=== PATIENT | female | born 1950 | race African-American/Black ===

== ENCOUNTER 2016-10-08 05:14 | Emergency (ER) | payer MEDICARE, OTHER ==
[~2016-10-08] VITALS: Ht 157.5 cm; Wt 82.0 kg
[2016-10-08] MEDS ORDERED: HYDROCODONE/ACETAMINOPHEN 5/325MG TABLET PO ONE (07:15)
[2016-10-08 07:38] VITALS: BP 172/66
== END 2016-10-08 08:24 | disposition home or self-care (01) ==
LOC: ER 05:14
DX: S00.03XA Contusion of scalp, initial encounter (principal); W18.39XA Other fall on same level, initial encounter; Y93.89 Activity, other specified; Y92.89 Other specified places as the place of occurrence of the external cause; M54.5 Low back pain; E11.9 Type 2 diabetes mellitus without complications; E05.90 Thyrotoxicosis, unspecified without thyrotoxic crisis or storm; I12.0 Hypertensive chronic kidney disease with stage 5 chronic kidney disease or end stage renal disease; N18.6 End stage renal disease; Z99.2 Dependence on renal dialysis
CPT/HCPCS: 99283

== ENCOUNTER 2018-08-01 15:39 | Inpatient (IN) | payer MEDICARE, MEDICAID ==
[~2018-08-01] VITALS: Ht 160 cm; Wt 70.3 kg
[2018-08-01 16:25] LABS: PROTHROMBIN TIME 10.5 sec (9.6-11.0)
[2018-08-01 16:26] LABS: CHLORIDE 97 mEq/L (98-107)
[2018-08-01 16:30] LABS: EOSINOPHILS % 3.3 % (0.0-5.0); HEMATOCRIT. 44.9 % (36.0-48.0); HEMOGLOBIN. 14.6 g/dL (12.0-16.0); LYMPHOCYTES % 20.4 % (20.0-50.0); MEAN CORPUSCULAR HEMOGLOBIN 31.8 pg (28.0-32.0); MEAN CORPUSCULAR VOLUME 97.5 fL (81.0-99.0); MEAN PLATELET VOLUME 9.3 fl (7.4-10.4); MONOCYTES % 7.1 % (2.0-8.0); NEUTROPHILS % 68.2 % (40.0-76.0); PLATELET 71 x1000/uL (130-400); RED CELL DISTRIBUTION WIDTH 16.1 % (11.6-14.6)
[2018-08-01 16:31] LABS: ETHANOL BLOOD < 10 mg/dL
[2018-08-01 16:34] LABS: LDL CHOLESTEROL 93 mg/dL (5-100)
[2018-08-01] MEDS ORDERED: IPRATROPIUM/ALBUTEROL 0.5-3(2.5)MG/3ML NEB INH PRN (16:45)
[2018-08-01] MEDS ORDERED: MAGNESIUM/ALUMINUM HYDROXIDE/SIMETHICONE 30ML UDC PO PRN (16:45)
[2018-08-01] MEDS ORDERED: ACETAMINOPHEN 650MG/20.3ML UDC GT PRN (16:45)
[2018-08-01] MEDS ORDERED: DIPHENHYDRAMINE 50MG/ML VIAL IV PRN (16:45)
[2018-08-01] MEDS ORDERED: DOCUSATE SODIUM 100MG CAPSULE PO PRN (16:45)
[2018-08-01] MEDS ORDERED: GUAIFENESIN 200MG/10ML SUGAR FREE UDC PO PRN (16:45)
[2018-08-01] MEDS ORDERED: CLONIDINE 0.1MG TABLET PO PRN (16:45)
[2018-08-01] MEDS ORDERED: NA PHOS,M-B/NA PHOS,DI-BA ENEMA 118ML PR PRN (16:45)
[2018-08-01] MEDS ORDERED: ONDANSETRON HCL 4MG/2ML INJ IV PRN (16:45)
[2018-08-01] MEDS ORDERED: ACETAMINOPHEN 650MG SUPP PR PRN (16:45)
[2018-08-01] MEDS ORDERED: ASPIRIN 81MG TABLET PO SCH (17:30)
[2018-08-01 20:00] VITALS: BP 98/39
[2018-08-01] MEDS ORDERED: HYDR-4001 PO ×2 (20:36)
[2018-08-01] MEDS ORDERED: FAMO-135 PO (20:36)
[2018-08-01] MEDS ORDERED: LEVO50TA PO (20:36)
[2018-08-01] MEDS ORDERED: CLON-457 PO (20:38)
[2018-08-01] MEDS ORDERED: DIPH25CA83 PO (20:38)
[2018-08-01] MEDS ORDERED: CLON0.5T23 PO (20:38)
[2018-08-01] MEDS ORDERED: BENA40TA9 PO (20:41)
[2018-08-01] MEDS ORDERED: NIFE90TA34 PO (20:41)
[2018-08-01] MEDS ORDERED: S350 PO (20:41)
[2018-08-01] MEDS ORDERED: CELE200C PO (20:41)
[2018-08-01] MEDS ORDERED: ALLO100T PO (20:41)
[2018-08-01] MEDS: HYDROCODONE/ACETAMINOPHEN 5/325MG TABLET PO PRN (23:11)
[2018-08-01] MEDS: SODIUM CHLORIDE 0.9% INJ 3ML FLUSH IVF SCH (23:27)
[2018-08-02] VITALS: BP 153/73
[2018-08-02 04:00] VITALS: BP 159/72
[2018-08-02 09:19] LABS: EOSINOPHILS % 1.9 % (0.0-5.0); HEMATOCRIT. 41.4 % (36.0-48.0); HEMOGLOBIN. 13.6 g/dL (12.0-16.0); LYMPHOCYTES % 15.5 % (20.0-50.0); MEAN CORPUSCULAR HEMOGLOBIN 31.8 pg (28.0-32.0); MEAN CORPUSCULAR VOLUME 96.6 fL (81.0-99.0); MEAN PLATELET VOLUME 9.2 fl (7.4-10.4); MONOCYTES % 6.5 % (2.0-8.0); NEUTROPHILS % 75.1 % (40.0-76.0); PLATELET 84 x1000/uL (130-400); RED BLOOD CELL COUNT 4.28 mill/uL (4.2-5.4); RED CELL DISTRIBUTION WIDTH 15.1 % (11.6-14.6)
[2018-08-02 09:29] LABS: CHLORIDE 96 mEq/L (98-107)
[2018-08-02 09:41] LABS: LDL CHOLESTEROL 86 mg/dL (5-100)
[2018-08-02 09:43] LABS: CREATINE KINASE 58 IU/L (26-192); HDL CHOLESTEROL 41 mg/dL (40-59)
[2018-08-02 09:46] LABS: CREATINE KINASE MB FRACTION 2.6 ng/mL (0.5-3.6)
[2018-08-02] MEDS: ASPIRIN 81MG TABLET PO SCH (09:47)
[2018-08-02] MEDS: HYDROCODONE/ACETAMINOPHEN 5/325MG TABLET PO PRN ×2 (10:10→16:56)
[2018-08-02] MEDS ORDERED: DOCUSATE SODIUM 100MG CAPSULE PO PRN (11:15)
[2018-08-02] MEDS: CLONAZEPAM 0.5MG TABLET PO PRN ×2 (11:32→23:11)
[2018-08-02 11:34] VITALS: BP 138/77
[2018-08-02 15:15] VITALS: BP 134/68
[2018-08-02] MEDS: SODIUM CHLORIDE 0.9% INJ 3ML FLUSH IVF SCH ×2 (18:30→22:00)
[2018-08-02 20:00] VITALS: BP 176/80
[2018-08-02] MEDS: ACETAMINOPHEN 325MG TABLET PO PRN (20:51)
[2018-08-03] VITALS: BP 160/87
[2018-08-03 04:00] VITALS: BP 135/88
[2018-08-03] MEDS: SODIUM CHLORIDE 0.9% INJ 3ML FLUSH IVF SCH ×2 (06:51→14:11)
[2018-08-03 08:00] VITALS: BP 158/72
[2018-08-03] MEDS: ASPIRIN 81MG TABLET PO SCH (08:18)
[2018-08-03] MEDS: HYDROCODONE/ACETAMINOPHEN 5/325MG TABLET PO PRN (10:23)
[2018-08-03] MEDS ORDERED: BENAZEPRIL 10MG TABLET PO SCH (12:00)
[2018-08-03] MEDS ORDERED: FAMOTIDINE 20MG TABLET PO SCH (12:00)
[2018-08-03] MEDS ORDERED: LEVOTHYROXINE SODIUM 50MCG TABLET PO SCH (12:00)
[2018-08-03] MEDS ORDERED: ALLOPURINOL 100 MG TABLET PO SCH (12:00)
[2018-08-03 12:08] VITALS: BP 140/69
[2018-08-03 12:33] VITALS: BP 140/76
[2018-08-03] MEDS: ACETAMINOPHEN 325MG TABLET PO PRN (13:22)
== END 2018-08-03 16:55 | DRG 70 ==
LOC: ER 16:00 → EDBEDREQ 16:17 → 6WST 16:42 → EDBEDREQ 16:46 → EDBEDREQSVC 17:06 → ENRESERV 17:35
PROVIDERS: ADMIT Family Medicine; ATTEND Family Medicine
DX: G93.41 Metabolic encephalopathy (principal); N18.6 End stage renal disease; E87.1 Hypo-osmolality and hyponatremia; N25.81 Secondary hyperparathyroidism of renal origin; I12.0 Hypertensive chronic kidney disease with stage 5 chronic kidney disease or end stage renal disease; I95.3 Hypotension of hemodialysis; E03.9 Hypothyroidism, unspecified; F41.9 Anxiety disorder, unspecified; Z99.2 Dependence on renal dialysis; E86.0 Dehydration; E86.1 Hypovolemia; E11.65 Type 2 diabetes mellitus with hyperglycemia; E11.22 Type 2 diabetes mellitus with diabetic chronic kidney disease; D64.9 Anemia, unspecified; E87.8 Other disorders of electrolyte and fluid balance, not elsewhere classified; E78.5 Hyperlipidemia, unspecified; Z88.1 Allergy status to other antibiotic agents; Z86.73 Personal history of transient ischemic attack (TIA), and cerebral infarction without residual deficits
CPT/HCPCS: 36415; 71045; 80061; 80320; 82550; 82553; 82962; 83721; 84484; 93005; 93306; 96374; 99285; J1200; J2405; G0480

== ENCOUNTER 2020-12-16 14:36 | Emergency (ER) | payer MEDICARE, MEDICAID ==
[~2020-12-16] VITALS: Ht 152.4 cm; Wt 62.0 kg
[~2020-12-16 14:36] MED LIST: ALLO100T PO; BENA40TA9 PO; CARI350T28 PO; CELE200C PO; CLON-457 PO; CLON0.5T23 PO; DIPH25CA83 PO; FAMO-135 PO; HYDR-4001 PO; LEVO50TA PO; NIFE90TA60 PO
[2020-12-16] MEDS ORDERED: IPRATROPIUM BROMIDE (0.02%) 0.5MG/2.5ML NEB HHN STA (15:10)
[2020-12-16] MEDS ORDERED: ALBUTEROL (0.083%) 2.5MG/3ML NEB HHN SCH (15:30)
[2020-12-16 15:45] LABS: BG BASE EXCESS 7.7 mmol/L (-2.0-2.0); BG CARBOXYHEMOGLOBIN 0.3 % (0.5-1.5); BG DEOXYHEMOGLOBIN 1.8 % (0.0-5.0); BG HCO3 ACT 31.9 mmol/L (22.0-26.0); BG METHEMOGLOBIN 0.3 % (0.0-1.5); BG OXYGEN SATURATION 98.2 % (92.0-98.5); BG OXYHEMOGLOBIN 97.6 % (94.0-97.0); BG PCO2 43.5 mmHg (35.0-45.0); BG PH 7.483 (7.350-7.450); BG PO2 108.5 mmHg (75.0-100.0); BG SAMPLE SITE LEFT BRACHIAL; BG TOTAL HEMOGLOBIN 10.6 g/dL (12.0-18.0); BG VENT MODE NASAL CANNULA
[2020-12-16 16:17] LABS: BASOPHILS % 1.2 % (0.0-2.0); EOSINOPHILS % 3.5 % (0.0-5.0); HEMATOCRIT. 31.7 % (36.0-48.0); HEMOGLOBIN. 10.2 g/dL (12.0-16.0); LYMPHOCYTES % 15.1 % (20.0-50.0); MEAN CORPUSCULAR HEMOGLOBIN 30.8 pg (28.0-32.0); MEAN CORPUSCULAR VOLUME 95.3 fL (81.0-99.0); MEAN PLATELET VOLUME 10.5 fl (7.4-10.4); MONOCYTES % 12.2 % (2.0-8.0); PLATELET 102 x1000/uL (130-400); RED BLOOD CELL COUNT 3.33 mill/uL (4.2-5.4); RED CELL DISTRIBUTION WIDTH 17.1 % (11.6-14.6)
[2020-12-16 16:21] LABS: CHLORIDE 101 mEq/L (98-107)
[2020-12-16 21:19] VITALS: BP 127/75
== END 2020-12-16 21:30 | disposition home or self-care (01) ==
LOC: ER 14:42
DX: J44.1 Chronic obstructive pulmonary disease with (acute) exacerbation (principal); E11.22 Type 2 diabetes mellitus with diabetic chronic kidney disease; I12.0 Hypertensive chronic kidney disease with stage 5 chronic kidney disease or end stage renal disease; N18.6 End stage renal disease; M19.90 Unspecified osteoarthritis, unspecified site; Z99.81 Dependence on supplemental oxygen; Z99.2 Dependence on renal dialysis; Z88.3 Allergy status to other anti-infective agents
CPT/HCPCS: 36415; 36600; 71045; 78580; 80053; 82375; 82805; 83690; 83880; 84484; 85025; 85379; 93005; 99285; A9540